=== PATIENT | male | born 1990 | race Two or more races ===

== ENCOUNTER 2016-10-17 16:12 | Inpatient (IN) | payer SELFPAY ==
--- NOTE | 2016-10-17 16:15 | ED Physician Chart ---
Chief Complaint/HPI - Patient Information Allergies:: Allergies Allergy/AdvReac Type Severity Reaction Status Date / Time No Known Allergies Allergy Verified 10/17/16 16:24 Vitals:: Vital Signs - 8 hr 10/17/16 16:24 Temp 100.0 F HR 115 RR 26 BP 131/89 O2 Sat % 99 <Tarun Lama - Last Filed: 10/17/16 20:43> - Patient Information Date Seen:: 10/17/16 Time Seen:: 16:15 Chief Complaint:: ANXIETY History of Present Illness:: PT SUSPICIOUS OF HAVING CONSUMED DOCTORED DRINK ONE WEEK AGO. SINCE THEN HAS BEEN ANXIOUS AND DEPRESSED. 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 HAD FEVER AND CHILLS A WEEK AGO. HAD ABD PAIN , NAUSEA AND EPISODE OF DIARRHEA YESTERDAY. NO ABD PAIN AT THIS TIME.. NO APPETITE OVER THIS PAST WEEK. NO CHEST PAIN, COUGH, HEMOPTYSIS, OR RESP DISTRESS. NO DYSURIA, HEMATURIA OR URINARY FREQUENCY. <Danny Weber - Last Filed: 10/18/16 14:01> Family Medical History - Family Member Mother History Unknown: Yes Ethnicity: Living Status: Still Living Hx Family Cancer: No Hx Family Coronary Artery Disease: No Hx Family Congestive Heart Failure: No Hx Family Hypertension: No Hx Family Stroke: No Hx Family Diabetes: No Hx Family Seizures: No Hx Family Dementia: No Hx Family AIDS: No Hx Family HIV: No Hx Family COPD: No Hx Family Hepatitis: No Hx Family Psychiatric Problems: No Hx Family Tuberculosis: No <Danny Weber - Last Filed: 10/18/16 14:01> Physical Exam - Physical Examination General/Constitutional: Awake, Well-developed, well-nourished, Alert, Ambulatory Head: Atraumatic Eyes: Lids, conjuctiva normal, PERRL, EOMI Skin: Nl inspection, No rash, No skin lesions, No ecchymosis, Well hydrated, No lymphadenopathy ENMT: External ears, nose nl, TM canals nl, Nasal exam nl, Lips, teeth, gums nl , Oropharynx nl, Tonsils nl Other ENMT comments:: Normal oral mucosa. Neck: Nontender, Full ROM w/o pain, No JVD, No nuchal rigidity, No mass, No stridor Respiratory: Nl effort/Exclusion, Clear to Auscultation, No Wheeze/Rhonchi/Rales Cardio Vascular: No murmur, gallop, rubs, NL S1 S2 ( Moderate tachycardia in the 120 range.) GI: No tenderness/rebounding/guarding, No organomegaly, No hernia, Normal BS's, Nondistended, No mass/bruits, No McBurney tenderness Other GI comments:: Rectal examination deferred at my discretion. : No CVA tenderness, NL external genitalia Extremities: No tenderness or effusion, Full ROM, normal strength in all extremities, No edema Neuro/Psych: Alert/oriented, Normal sensory exam, Normal motor strength, Judgement/insight normal, Mood normal, Normal gait, No focal deficits Other Neuro/Psych comments:: Hyperreflexia in all four extremities. No clonus. Misc: Normal back, No paraspinal tenderness <Danny Weber - Last Filed: 10/18/16 14:01> Labs/Radiology/EKG Results - Lab Results Results: Laboratory Tests 10/17/16 10/17/16 10/17/16 16:23 16:23 16:40 WBC 14.3 H RBC 5.88 H Hgb 17.8 H Hct 52.6 H MCV 89.5 MCH 30.4 H MCHC Differential 33.9 RDW 12.7 Plt Count 238 MPV 7.9 Neutrophils (Manual) 85 H Lymphocytes 9 L Monocytes 5 Basophils 1 Platelet Estimate ADEQUATE Sodium Potassium Chloride Carbon Dioxide Anion Gap BUN Creatinine Est GFR ( Amer) Est GFR (Non-Af Amer) BUN/Creatinine Ratio Glucose Whole Bld Lactic Acid Calcium Total Bilirubin AST ALT Alkaline Phosphatase Total Protein Albumin Globulin Albumin/Globulin Ratio Urine Source CLEAN C Urine Color YELLOW Urine Clarity HAZY Urine pH 8.5 Ur Specific [place] 1.015 Urine Protein 30 H Urine Glucose (UA) NEGATIVE Urine Ketones NEGATIVE Urine Blood NEGATIVE Urine Nitrate NEGATIVE Urine Bilirubin NEGATIVE Urine Urobilinogen 0.2 Ur Leukocyte Esterase NEGATIVE Urine RBC NONE SEEN Urine WBC 0-2 Ur Epithelial Cells RARE Amorphous Sediment MANY PHOSPHATES Urine Bacteria FEW Urine Opiates Screen NEGATIVE Urine Methadone Screen NEGATIVE Ur Barbiturates Screen NEGATIVE Ur Tricyclics Screen NEGATIVE Ur Phencyclidine Scrn NEGATIVE Amphetamines Screen NEGATIVE U Methamphetamines Scrn NEGATIVE U Benzodiazepines Scrn NEGATIVE U Cocaine Metab Screen NEGATIVE U Cannabinoids Screen NEGATIVE 10/17/16 10/17/16 16:40 16:40 WBC RBC Hgb Hct MCV MCH MCHC Differential RDW Plt Count MPV Neutrophils (Manual) Lymphocytes Monocytes Basophils Platelet Estimate Sodium 132 L Potassium 3.7 Chloride 99 Carbon Dioxide 26.6 Anion Gap 10.1 BUN 18 Creatinine 1.1 Est GFR ( Amer) > 60.0 Est GFR (Non-Af Amer) > 60.0 BUN/Creatinine Ratio 16.4 Glucose 129 H Whole Bld Lactic Acid 1.80 Calcium 10.1 Total Bilirubin 1.6 H AST 19 ALT 19 Alkaline Phosphatase 44 Total Protein 7.8 Albumin 4.9 Globulin 2.9 Albumin/Globulin Ratio 1.7 Urine Source Urine Color Urine Clarity Urine pH Ur Specific [place] Urine Protein Urine Glucose (UA) Urine Ketones Urine Blood Urine Nitrate Urine Bilirubin Urine Urobilinogen Ur Leukocyte Esterase Urine RBC Urine WBC Ur Epithelial Cells Amorphous Sediment Urine Bacteria Urine Opiates Screen Urine Methadone Screen Ur Barbiturates Screen Ur Tricyclics Screen Ur Phencyclidine Scrn Amphetamines Screen U Methamphetamines Scrn U Benzodiazepines Scrn U Cocaine Metab Screen U Cannabinoids Screen - Radiology Results Results: Single AP VIEW Portable Chest X-ray was interpreted independently and contemporaneously by Neli Lama MD: No cardiomegaly Normal mediastinum No lung infiltrates No pneumothorax No soft tissue or bony abnormalities CT abdomen and pelvis with contrast per radiology No hydro- No free fluid Appendix normal Fecal impaction Mild ileus <Tarun Lama - Last Filed: 10/17/16 20:43> - EKG Interpretations EKG Time:: 16:34 Rate & Rhythm: SINUS TACHYCARDIA AT RATE OF 116. NO ECTOPY Harvey: RIGHT AXIS DEVIATION Intervals: NORMAL MN INTERVAL. NORMAL QRS DURATION. NORMAL QT INTERVAL Comments:: J-POINT ELEVATION LEADS V3 THROUGH V6. NO ISCHEMIC FINDINGS. <Danny Weber - Last Filed: 10/18/16 14:01> Assessment - Assessment General Assessment: CASE SUMMARY: This 26 year old male presents With a one-week history of anxiety. He is having financial stress and also stress with interpersonal relationships. Patient had a history of a fever and chills about the time of onset. He denies any headache, sore throat, chest pain, cough, difficulty breathing or urologic symptoms. He has had intermittent abdominal pain which is generalized and is not currently present. His physical examination was unremarkable except for hyperreflexia in all four extremities In tachycardia in the 110 to 150 range. Patient was hydrated with normal saline all in the emergency department with reduction in the tachycardia. He had a leukocytosis of 14,000. Laboratory studies were otherwise unremarkable. CT scan of the abdomen was negative for evidence of acute appendicitis. Urinalysis was negative for evidence of a UTI. physical examination and chest x-ray were negative for evidence of pneumonia. Patient was admitted because of persistent tachycardia and elevated white count. He was treated with 2 L of normal saline over the duration of the ER visit was subjective improvement in his symptoms. Laboratory studies were negative for any evidence of illicit drug use. Admitted in stable condition. MDM DDX TACHYCARDIA AND ELEVATED WBC COUNT: NOT Pneumonia based on history, exam and negative CX. NOT UTI Based on History and physical examination andthe urinalysis. NOT acute appendicitis based on normal appearance of the appendix on CT scan of the abdomen. <Danny Weber - Last Filed: 10/18/16 14:01> ED Septic Shock - . Is Septic Shock (SBP<90, OR Lactate>4 mmol\L) present?: No - <6hrs of presentation: Vital Signs: Vital Signs - 8 hr 10/17/16 16:24 Temp 100.0 F HR 115 RR 26 BP 131/89 O2 Sat % 99 <Tarun Lama - Last Filed: 10/17/16 20:43> Reassessment (Disposition) - Reassessment Reassessment:: Patient handed off to me at change of shift. Patient had arrived with tachycardia and elevated temperature, labs revealed elevated white blood count. CT shows fecal impaction. Concern for sepsis however there is unknown source at this time. Discussed case with the admitting physician. Patient admitted for further workup and treatment. Reassessment Condition:: Unchanged - Diagnosis Diagnosis:: Possible sepsis, unknown etiology Fecal impaction Tachycardia - Patient Disposition Discharge/Transfer:: Acute Care w/in [facility] Admitting Medical Physician:: Vic Nation Time:: 20:45 Condition at Disposition:: Stable <Tarun Lama - Last Filed: 10/17/16 20:43> ED Discharge Plan <Tarun Lama - Last Filed: 10/17/16 20:43> <Danny Weber - Last Filed: 10/18/16 14:01> - Patient Disposition Admit/Discharge/Transfer: Acute Care w/in [facility] hosp
[2016-10-17 16:44] LABS: URINE AMORPHOUS SEDIMENT MANY PHOSPHATES (NONE SEEN); URINE BACTERIA FEW /hpf (NONE SEEN); URINE BILIRUBIN NEGATIVE (NEGATIVE); URINE BLOOD NEGATIVE (NEGATIVE); URINE COLOR YELLOW; URINE EPITHELIAL CELLS RARE /lpf (FEW); URINE GLUCOSE (UA) NEGATIVE (NEGATIVE); URINE KETONE NEGATIVE (NEGATIVE); URINE PH 8.5; URINE PROTEIN 30 mg/dL (NEGATIVE); URINE RBC NONE SEEN /hpf (0-5); URINE UROBILINOGEN 0.2 E.U./dL (0.2 - 1.0); URINE WBC 0-2 /hpf (0-5)
[2016-10-17] MEDS ORDERED: Sodium Chloride 0.45% 1,000 ML IV ONE ×2 (16:47→16:48)
[2016-10-17 16:49] LABS: HEMATOCRIT 52.6 % (39.0-49.0); HEMOGLOBIN 17.8 gm/dL (13.2-17.3); MEAN CELL VOLUME 89.5 fl (80-99); MEAN CORPUSCULAR HEMOGLOBIN 30.4 pg (26.0-30.0); MEAN CORPUSCULAR HGB CONC 33.9 pg (28.0-36.0); MEAN PLATELET VOLUME 7.9 fl; PLATELET COUNT 238 Th/cmm (150-400); RED BLOOD COUNT 5.88 Mil/cmm (4.30-5.70); RED CELL DISTRIBUTION WIDTH 12.7 % (11.5-20.0)
[2016-10-17 16:51] LABS: WHITE BLOOD COUNT 14.3 Th/cmm (4.8-10.8)
[2016-10-17 16:53] LABS: AMPHETAMINE URINE NEGATIVE (NEGATIVE); BARBITURATES URINE NEGATIVE (NEGATIVE); METHADONE URINE NEGATIVE (NEGATIVE)
[2016-10-17 17:07] LABS: ALB/GLOB RATIO 1.7 (1.0-1.8); ALKALINE PHOSPHATASE 44 U/L (34-104); ANION GAP 10.1 (7.0-16.0); BILIRUBIN,TOTAL 1.6 mg/dL (0.3-1.0); BUN - UREA NITROGEN 18 mg/dL (7-25); BUN/CREATININE RATIO 16.4; CALCIUM SERUM 10.1 mg/dL (8.6-10.3); CARBON DIOXIDE 26.6 mEq/L (21.0-31.0); CHLORIDE 99 mEq/L (98-107); CREATININE - SERUM 1.1 mg/dL (0.7-1.3); GLUCOSE 129 mg/dL (70-105); POTASSIUM SERUM 3.7 mEq/L (3.5-5.1); SGOT 19 U/L (13-39); SGPT/ALT 19 U/L (7-52); SODIUM SERUM 132 mEq/L (136-145)
[2016-10-17 17:15] LABS: BASOPHIL 1 % (0-3); NEUTROPHILS 85 % (40-80); PLATELET ESTIMATE ADEQUATE (NORMAL); TOTAL CELLS COUNTED 100
[2016-10-17] MEDS ORDERED: Sodium Chloride 0.9% 1,000 ML IV SCH ×2 (17:15→21:00)
[2016-10-17] MEDS: Sodium Chloride 0.9% 1,000 ML IV SCH (17:38)
[2016-10-17] MEDS ORDERED: IOHEXOL 300MG/ML 100 ML VIAL ONE (19:11)
[2016-10-17 22:34] VITALS: BP 124/73
[2016-10-17] MEDS ORDERED: Piperacillin Sodium/Tazobact 3.375 gm Vial IV ONE ×2 (23:28)
[2016-10-18 05:59] LABS: % EOSINOPHILS 1.8 % (0.0-5.0); % LYMPHOCYTES 17.5 % (20.0-50.0); % MONOCYTES 6.9 % (2.0-10.0); % NEUTROPHILS 73.8 % (40.0-80.0); MEAN CELL VOLUME 90.5 fl (80-99); MEAN CORPUSCULAR HEMOGLOBIN 30.5 pg (26.0-30.0); MEAN CORPUSCULAR HGB CONC 33.8 pg (28.0-36.0); NEUTROPHILE ABSOLUTE 7.2 Th/cmm (1.8-8.0); PLATELET COUNT 208 Th/cmm (150-400); RED BLOOD COUNT 4.94 Mil/cmm (4.30-5.70); RED CELL DISTRIBUTION WIDTH 12.6 % (11.5-20.0)
[2016-10-18 06:05] LABS: ALB/GLOB RATIO 1.8 (1.0-1.8); ALKALINE PHOSPHATASE 34 U/L (34-104); ANION GAP 4.3 (7.0-16.0); BUN - UREA NITROGEN 12 mg/dL (7-25); CARBON DIOXIDE 27.4 mEq/L (21.0-31.0); CHLORIDE 106 mEq/L (98-107); GLUCOSE 91 mg/dL (70-105); POTASSIUM SERUM 3.7 mEq/L (3.5-5.1); SGOT 12 U/L (13-39); SGPT/ALT 12 U/L (7-52); SODIUM SERUM 134 mEq/L (136-145)
[2016-10-18 06:09] LABS: HEMATOCRIT 44.7 % (39.0-49.0); HEMOGLOBIN 15.1 gm/dL (13.2-17.3); WHITE BLOOD COUNT 9.8 Th/cmm (4.8-10.8)
--- NOTE | 2016-10-18 08:28 | Diagnostic Imaging Report ---
Exam: CT examination abdomen pelvis. HISTORY: Appendicitis. Total DLP equals 303 CTDI equals 6.3 Findings multiple contiguous thin section of the abdomen and pelvis obtained from lower thorax to the pubic symphysis with administration of intravenous contrast material oral contrast was not utilized. The study demonstrates normal aeration of the lung parenchyma the bases. The liver and spleen are intact. The adrenal glands are normal. The kidneys concentrate and excrete contrast material in normal fashion. The bowel gas nonspecific. The gallbladder is contracted. There is evidence for fecal impaction throughout the colon. The visualized appendix is intact there is no evidence of appendicitis. Distention small bowel loops with fluid in the lower abdominal and pelvic area suggestive of ileus. There is no evidence of the diverticular disease of diverticulitis. Bony structures demonstrate no evidence for lytic or blastic changes. IMPRESSION: 1. Large amount of fecal content suggestive of fecal impaction. 2. Normal appearance of appendix no evidence for appendicitis. 3. Mild ileus distention of small bowel loops is fluid in the lower abdomen and pelvic area clinical correlation is recommended
--- NOTE | 2016-10-18 08:29 | Diagnostic Imaging Report ---
Exam: Portable examination of chest upright HISTORY: Pneumonia. Findings: Portable upright examination of the chest at 1903 hours reviewed, the study demonstrates no active pulmonic infiltrates or effusions. Mediastinal structures midline the heart is no enlarged bony thorax is intact. IMPRESSION: No acute disease
[2016-10-18] MEDS ORDERED: Magnesium Citrate 1.75 GM/300 mL Bottle PO ONE (09:58)
--- NOTE | 2016-10-18 10:32 | Diagnostic Imaging Report ---
Examination: KUB HISTORY: Abdominal pain Findings: Portable supine examination the abdomen is 0800 hours reviewed the study demonstrates nonspecific bowel gas pattern. No abnormal masses or calcifications are noted. Bony structures intact. IMPRESSION: Normal examination of the abdomen
--- NOTE | 2016-10-18 14:42 | Consultation ---
Consult Note - Consult Note Service Date: 10/18/16 Consult Note: PHYSICIAN Consultation Note: Date of Admission: 10/17/16 Purpose of Consultation: Sepsis. Chief Complaint: Patient SONJA CALZADA was admitted to location Medical/Surgical Unit I with SEPSIS ,FECAL IMPACT,DEHYDRATION. History of Present Illness: 26 y male presented to the ER for anxiety episode associated with abdominal pain. He also complained for of diarrhea for at least one week. on initial eval;uation, his temperature was 100 degree F and WBC Count was 14, 000. CT scan of the abdomen revwealed fecal impaction. He denies any issue like this before. Zosyn was started and ID consult was called for antibotic management. Past Medical History: Nonsignificant. Allergies Allergy/AdvReac Type Severity Reaction Status Date / Time No Known Allergies Allergy Verified 10/17/16 16:24 Vital Signs Temp 98.1 F 10/18/16 04:00 Pulse 74 10/18/16 04:00 Resp 18 10/18/16 04:00 BP 120/72 10/18/16 04:00 Pulse Ox 100 10/18/16 04:00 Intake & Output 10/17/16 10/18/16 10/18/16 18:59 06:59 18:59 Intake Total 2510 Output Total 1100 Balance 1410 Weight (lbs) 59.466 kg Intake: Intake, IV Amount 2150 Piperacillin Sodium/ 100 Tazobact 3.375 gm In Sodium Chloride 0.9% 50 ml @ 100 mls/hr IV Q6HR [facility] Rx#:[id number] Piperacillin Sodium/ 50 Tazobact 4.5 gm In Sodium Chloride 0.9% 100 ml @ 100 mls/hr IV X1 [facility] Rx#: [id number] Sodium Chloride 0.9% 1, 1000 000 ml @ Wide Open IV . Q0M [facility] Rx#:[id number] Sodium Chloride 0.9% 1, 1000 000 ml @ Wide Open IV . Q0M [facility] Rx#:[id number] Oral 360 Output: Urine 1100 Laboratory Results - last 24 hr 10/18/16 10/18/16 05:08 05:08 WBC 9.8 D RBC 4.94 Hgb 15.1 D Hct 44.7 D MCV 90.5 MCH 30.5 H MCHC Differential 33.8 RDW 12.6 Plt Count 208 MPV 8.0 Neutrophils % 73.8 Lymphocytes % 17.5 L Monocytes % 6.9 Eosinophils % 1.8 Basophils % 0.0 Sodium 134 L Potassium 3.7 Chloride 106 Carbon Dioxide 27.4 Anion Gap 4.3 L BUN 12 Creatinine 1.0 Est GFR ( Amer) > 60.0 Est GFR (Non-Af Amer) > 60.0 BUN/Creatinine Ratio 12.0 Glucose 91 Calcium 9.0 Total Bilirubin 2.0 H AST 12 L ALT 12 Alkaline Phosphatase 34 Total Protein 6.1 Albumin 3.9 L Globulin 2.2 Albumin/Globulin Ratio 1.8 Current Medications Generic Name Dose Route Start Last Admin Trade Name Freq PRN Reason Stop Dose Admin Sodium Chloride 1,000 mls @ 0 mls/hr 10/17/16 17:15 10/17/16 17:38 Nacl 0.9% IV 12/16/16 17:14 999 mls/hr .Q0M [facility] Administration Wide Open Sodium Chloride 1,000 mls @ 0 mls/hr 10/17/16 17:15 Nacl 0.9% IV 12/16/16 17:14 .Q0M [facility] Wide Open Sodium Chloride 1,000 mls @ 50 mls/hr 10/17/16 21:00 10/17/16 22:15 Nacl 0.9% IV 12/16/16 20:59 50 mls/hr .Q20H [facility] Administration Piperacillin Sod/Tazobactam 50 mls @ 100 mls/hr 10/18/16 00:00 10/18/16 12:00 Sod 3.375 gm/ Sodium Chloride IV 12/17/16 00:00 100 mls/hr Q6HR [facility] Administration Miscellaneous 1 ea 10/17/16 21:00 Zosyn Iv Per Pharmacy 12/16/16 20:59 PRN PRN PROTOCOL Review of Systems: A 12 point ROS was reviewed with the pertinent positive and negatives noted in the HPI. Social History Smoking Status Current some day smoker Drug Use No Alcohol Use No Family Medical History Unknown. Physical Exam: General: WN WD. anxious. No Acute Distress HEENT: EOMI Bilaterally, PERRLA Bilaterally, Head is normocephalic, atraumatic on inspection. Cardio: +S1/S2 Auscultated, RRR, no murmurs/rubs/gallops noted Respiratory: Clear to Auscultate Bilaterally Abdominal: Soft, Nondistended, Nontender to palpation x 4 quadrants Extremities: No Edema noted in the lower extremities Neurological: Alert and Oriented x3, Cranial Nerves II-XII intact bilaterally, Gait Steady, No Focal Deficits noted. Assessment/Plan: 1. Leukocytosis with low grade fever, suspect sepsis. or reactive to fecal impaction. 2. Diarrhea, r/o gastoenteritis versus C diff. 3. Anxiety Recomendations: Will start flagyl po and check stool studies. If blood culture remains negative may dc antibiotics. Thank you, Dr Nation for involving me in takini care of Mr Dominguez. Signed, [facility] M.D. [id number]
[2016-10-18] MEDS: Sodium Chloride 0.9% 1,000 ML IV SCH (20:28)
[2016-10-19 05:56] LABS: % EOSINOPHILS 4.4 % (0.0-5.0); % LYMPHOCYTES 25.1 % (20.0-50.0); % MONOCYTES 7.5 % (2.0-10.0); HEMATOCRIT 44.5 % (39.0-49.0); HEMOGLOBIN 15.3 gm/dL (13.2-17.3); MEAN CELL VOLUME 88.8 fl (80-99); MEAN CORPUSCULAR HEMOGLOBIN 30.6 pg (26.0-30.0); MEAN CORPUSCULAR HGB CONC 34.5 pg (28.0-36.0); MEAN PLATELET VOLUME 7.8 fl; NEUTROPHILE ABSOLUTE 4.5 Th/cmm (1.8-8.0); PLATELET COUNT 198 Th/cmm (150-400); RED BLOOD COUNT 5.01 Mil/cmm (4.30-5.70); RED CELL DISTRIBUTION WIDTH 12.8 % (11.5-20.0)
[2016-10-19 05:58] LABS: WHITE BLOOD COUNT 7.1 Th/cmm (4.8-10.8)
[2016-10-19 08:01] LABS: ALB/GLOB RATIO 1.7 (1.0-1.8); ALKALINE PHOSPHATASE 32 U/L (34-104); ANION GAP 8.1 (7.0-16.0); BILIRUBIN,TOTAL 1.2 mg/dL (0.3-1.0); BUN - UREA NITROGEN 12 mg/dL (7-25); CALCIUM SERUM 9.2 mg/dL (8.6-10.3); CARBON DIOXIDE 26.7 mEq/L (21.0-31.0); CHLORIDE 106 mEq/L (98-107); CREATININE - SERUM 1.2 mg/dL (0.7-1.3); GLUCOSE 92 mg/dL (70-105); LIPASE 19 U/L (11-82); POTASSIUM SERUM 3.8 mEq/L (3.5-5.1); SGOT 11 U/L (13-39); SGPT/ALT 10 U/L (7-52); SODIUM SERUM 137 mEq/L (136-145)
--- NOTE | 2016-10-19 09:41 | Diagnostic Imaging Report ---
Exam: KUB HISTORY: Constipation. Findings: Single supine examination of the abdomen was reviewed. The study demonstrates nonspecific bowel gas pattern. No abnormal masses or calcifications are noted. Bony structures are intact. IMPRESSION: Nonspecific bowel gas pattern, no evidence of fecal impaction.
--- NOTE | 2016-10-19 13:16 | Infectious Disease Prog Note ---
Infectious Disease Subjective - Review of Systems Service Date: 10/19/16 Subjective: There is no new change, there is no fever. Infectious Disease Objective - Results Result Diagrams: 10/19/16 05:41 10/19/16 05:41 Recent Labs: Laboratory Last Values WBC 7.1 Th/cmm (4.8-10.8) D 10/19/16 05:41 RBC 5.01 Mil/cmm (4.30-5.70) 10/19/16 05:41 Hgb 15.3 gm/dL (13.2-17.3) 10/19/16 05:41 Hct 44.5 % (39.0-49.0) 10/19/16 05:41 MCV 88.8 fl (80-99) 10/19/16 05:41 MCH 30.6 pg (26.0-30.0) H 10/19/16 05:41 MCHC Differential 34.5 pg (28.0-36.0) 10/19/16 05:41 RDW 12.8 % (11.5-20.0) 10/19/16 05:41 Plt Count 198 Th/cmm (150-400) 10/19/16 05:41 MPV 7.8 fl 10/19/16 05:41 Neutrophils % 63.0 % (40.0-80.0) 10/19/16 05:41 Lymphocytes % 25.1 % (20.0-50.0) 10/19/16 05:41 Monocytes % 7.5 % (2.0-10.0) 10/19/16 05:41 Eosinophils % 4.4 % (0.0-5.0) 10/19/16 05:41 Basophils % 0.0 % (0.0-2.0) 10/19/16 05:41 Neutrophils (Manual) 85 % (40-80) H 10/17/16 16:40 Lymphocytes 9 % (20-50) L 10/17/16 16:40 Monocytes 5 % (2-10) 10/17/16 16:40 Basophils 1 % (0-3) 10/17/16 16:40 Platelet Estimate ADEQUATE (NORMAL) 10/17/16 16:40 Sodium 137 mEq/L (136-145) 10/19/16 05:41 Potassium 3.8 mEq/L (3.5-5.1) 10/19/16 05:41 Chloride 106 mEq/L (98-107) 10/19/16 05:41 Carbon Dioxide 26.7 mEq/L (21.0-31.0) 10/19/16 05:41 Anion Gap 8.1 (7.0-16.0) 10/19/16 05:41 BUN 12 mg/dL (7-25) 10/19/16 05:41 Creatinine 1.2 mg/dL (0.7-1.3) 10/19/16 05:41 Est GFR ( Amer) > 60.0 ml/min (>90) 10/19/16 05:41 Est GFR (Non-Af Amer) > 60.0 ml/min 10/19/16 05:41 BUN/Creatinine Ratio 10.0 10/19/16 05:41 Glucose 92 mg/dL (70-105) 10/19/16 05:41 Whole Bld Lactic Acid 1.80 mmol/L (0.60-1.99) 10/17/16 16:40 Calcium 9.2 mg/dL (8.6-10.3) 10/19/16 05:41 Total Bilirubin 1.2 mg/dL (0.3-1.0) H 10/19/16 05:41 AST 11 U/L (13-39) L 10/19/16 05:41 ALT 10 U/L (7-52) 10/19/16 05:41 Alkaline Phosphatase 32 U/L (34-104) L 10/19/16 05:41 Total Protein 6.3 gm/dL (6.0-8.3) 10/19/16 05:41 Albumin 4.0 gm/dL (4.2-5.5) L 10/19/16 05:41 Globulin 2.3 gm/dL 10/19/16 05:41 Albumin/Globulin Ratio 1.7 (1.0-1.8) 10/19/16 05:41 Lipase 19 U/L (11-82) 10/19/16 05:41 Urine Source CLEAN C 10/17/16 16:23 Urine Color YELLOW 10/17/16 16:23 Urine Clarity HAZY (CLEAR) 10/17/16 16:23 Urine pH 8.5 10/17/16 16:23 Ur Specific [place] 1.015 (1.005-1.030) 10/17/16 16:23 Urine Protein 30 mg/dL (NEGATIVE) H 10/17/16 16:23 Urine Glucose (UA) NEGATIVE mg/dL (NEGATIVE) 10/17/16 16:23 Urine Ketones NEGATIVE mg/dL (NEGATIVE) 10/17/16 16:23 Urine Blood NEGATIVE (NEGATIVE) 10/17/16 16:23 Urine Nitrate NEGATIVE (NEGATIVE) 10/17/16 16:23 Urine Bilirubin NEGATIVE (NEGATIVE) 10/17/16 16:23 Urine Urobilinogen 0.2 E.U./dL (0.2 - 1.0) 10/17/16 16:23 Ur Leukocyte Esterase NEGATIVE (NEGATIVE) 10/17/16 16:23 Urine RBC NONE SEEN /hpf (0-5) 10/17/16 16:23 Urine WBC 0-2 /hpf (0-5) 10/17/16 16:23 Ur Epithelial Cells RARE /lpf (FEW) 10/17/16 16:23 Amorphous Sediment MANY PHOSPHATES (NONE SEEN) 10/17/16 16:23 Urine Bacteria FEW /hpf (NONE SEEN) 10/17/16 16:23 Stool Leukocyte NO WBC SEEN 10/18/16 14:50 Urine Opiates Screen NEGATIVE (NEGATIVE) 10/17/16 16:23 Urine Methadone Screen NEGATIVE (NEGATIVE) 10/17/16 16:23 Ur Barbiturates Screen NEGATIVE (NEGATIVE) 10/17/16 16:23 Ur Tricyclics Screen NEGATIVE (NEGATIVE) 10/17/16 16:23 Ur Phencyclidine Scrn NEGATIVE (NEGATIVE) 10/17/16 16:23 Amphetamines Screen NEGATIVE (NEGATIVE) 10/17/16 16:23 U Methamphetamines Scrn NEGATIVE (NEGATIVE) 10/17/16 16:23 U Benzodiazepines Scrn NEGATIVE (NEGATIVE) 10/17/16 16:23 U Cocaine Metab Screen NEGATIVE (NEGATIVE) 10/17/16 16:23 U Cannabinoids Screen NEGATIVE (NEGATIVE) 10/17/16 16:23 - Physical Exam Vitals and I&O: Vital Signs Temp 98 F 10/19/16 10:12 Pulse 73 10/19/16 10:12 Resp 20 10/19/16 10:12 BP 123/70 10/19/16 10:12 Pulse Ox 99 10/19/16 10:12 Intake & Output 10/18/16 10/19/16 10/19/16 18:59 06:59 18:59 Intake Total 900 290 600 Output Total 905 3 Balance -5 287 600 Weight (lbs) 59.421 kg 60.328 kg 60.328 kg Intake: Intake, IV Amount 100 50 Piperacillin Sodium/ 100 50 Tazobact 3.375 gm In Sodium Chloride 0.9% 50 ml @ 100 mls/hr IV Q6HR [facility] Rx#:[id number] Oral 800 240 600 Output: Urine 900 Stool 5 3 Other: # Voids 5 4 Stool Characteristics Liquid Liquid Liquid Active Medications: Current Medications Acetaminophen (Tylenol) 650 mg PO Q6H PRN PRN Reason: Headache Stop: 12/17/16 22:48 Last Admin: 10/18/16 23:25 Dose: 650 mg Sodium Chloride (Nacl 0.9%) 1,000 mls @ 50 mls/hr IV .Q20H [facility] Stop: 12/16/16 20:59 Last Admin: 10/17/16 22:15 Dose: 50 mls/hr Piperacillin Sod/Tazobactam (Sod 3.375 gm/ Sodium Chloride) 50 mls @ 100 mls/ hr IV Q6HR [facility] Stop: 12/18/16 11:59 Miscellaneous (Zosyn Iv Per Pharmacy) 1 ea [facility] PRN PRN PRN Reason: PROTOCOL Stop: 12/16/16 20:59 General: no acute distress, well developed, well nourished HEENT: atraumatic, normocephalic, moist mucous membrane Neck: supple, no thyromegaly Cardiovascular: S1S2, regular Lungs: clear to auscultation bilaterally, clear to percussion Abdomen: soft, bowel sounds, no tender, no distended Extremities: no cyanosis, no clubbing, no edema Neurological: awake, alert, oriented Skin: intact Infectious Disease Assmt/Plan - Assessment Assessment: 1. Leukocytosis with low grade fever, suspect sepsis. or reactive to fecal impaction. 2. Diarrhea, r/o gastoenteritis versus C diff. 3. Anxiety Recomendations: Continue flagyl po and check stool studies. narrow down antibiotic zosyn to rocephin. If blood culture remains negative may dc antibiotics.
--- NOTE | 2016-10-24 07:13 | Discharge Summary ---
General Discharge Summary - Discharge Summary Date of Admission: 10/17/16 Admitting Diagnosis: abdominal pain, fever and chills Patient Problems: All Active Problems Abdominal pain (Acute) R10.9 Anxiety (Acute) F41.9 Depression (Acute) F32.9 Hyponatremia (Acute) E87.1 Ileus (Acute) K56.7 Prerenal azotemia (Acute) R79.89 Sepsis (Acute) Discharge Date: 10/19/16 Discharge Diagnosis: abd pain, ileus, dehydration, sepsis, hypoNa+, Anxiety/ depression Laboratory Findings: Laboratory Tests 10/18/16 10/18/16 10/18/16 05:08 05:08 14:50 WBC 9.8 D RBC 4.94 Hgb 15.1 D Hct 44.7 D MCV 90.5 MCH 30.5 H MCHC Differential 33.8 RDW 12.6 Plt Count 208 MPV 8.0 Neutrophils % 73.8 Lymphocytes % 17.5 L Monocytes % 6.9 Eosinophils % 1.8 Basophils % 0.0 Sodium 134 L Potassium 3.7 Chloride 106 Carbon Dioxide 27.4 Anion Gap 4.3 L BUN 12 Creatinine 1.0 Est GFR ( Amer) > 60.0 Est GFR (Non-Af Amer) > 60.0 BUN/Creatinine Ratio 12.0 Glucose 91 Calcium 9.0 Total Bilirubin 2.0 H AST 12 L ALT 12 Alkaline Phosphatase 34 Total Protein 6.1 Albumin 3.9 L Globulin 2.2 Albumin/Globulin Ratio 1.8 Lipase Stool Leukocyte NO WBC SEEN 10/19/16 10/19/16 05:41 05:41 WBC 7.1 D RBC 5.01 Hgb 15.3 Hct 44.5 MCV 88.8 MCH 30.6 H MCHC Differential 34.5 RDW 12.8 Plt Count 198 MPV 7.8 Neutrophils % 63.0 Lymphocytes % 25.1 Monocytes % 7.5 Eosinophils % 4.4 Basophils % 0.0 Sodium 137 Potassium 3.8 Chloride 106 Carbon Dioxide 26.7 Anion Gap 8.1 BUN 12 Creatinine 1.2 Est GFR ( Amer) > 60.0 Est GFR (Non-Af Amer) > 60.0 BUN/Creatinine Ratio 10.0 Glucose 92 Calcium 9.2 Total Bilirubin 1.2 H AST 11 L ALT 10 Alkaline Phosphatase 32 L Total Protein 6.3 Albumin 4.0 L Globulin 2.3 Albumin/Globulin Ratio 1.7 Lipase 19 Stool Leukocyte Hospital Course: CC: Abdominal Pain, fever and chills Brief HPI : 26 y/o male who presents to [facility] ER for abdominal pain, constipation for the past few days. Patient had an episode of nausea and diarrhea prior to admission. He has had a decrease in his appetite. He denies chest pain, coughing, or urinary frequency or urgency. A CT scan of his stomach revealed a mild ileas and fecal impaction. Patient was subsequently admitted for further evaluation and treatment. Treatment: Patient underwent KUB which revealed resolution of his ileus on October 19. His electrolyte imbalance was corrected after given adequate IV fluid hydration. Patient was also seen by Infectious disease for possible sepsis. Please see dictated report. Patient was given Zosyn initially in the ER which was continued when patient was transferred to med/surg. Patient improved during his hospital stay and was subsequently discharge in stable condition. He was to follow up with his regular physician in 2-3 days. Condition at Discharge: Stable Disposition: PT DISCHARGED HOME Activity: As Tolerated Discharge Diet: Regular Consults and Follow-Up: Vic Nation [Primary Care Provider] - Instructions: High-Fiber Diet, Fecal Impaction
== END 2016-10-19 14:10 | disposition home or self-care (01) | DRG 872 ==
LOC: ER 16:12 → MSI 21:00
PROVIDERS: ADMIT Family Medicine; ATTEND Family Medicine
DX: A41.9 Sepsis, unspecified organism (principal); E87.1 Hypo-osmolality and hyponatremia; K56.7 Ileus, unspecified; K56.41 Fecal impaction; E86.0 Dehydration; F41.9 Anxiety disorder, unspecified; F32.9 Major depressive disorder, single episode, unspecified; F17.210 Nicotine dependence, cigarettes, uncomplicated; R19.7 Diarrhea, unspecified
CPT/HCPCS: 36415-UA; 71010-TC; 74000-TC; 80053-TC; 80307; 81001-TC; 83605; 83690-TC; 85007-TC; 85025-TC; 85027-TC; 87046-90; 87086-90; 87209-90; 87230-TC; 89055-TC; 93005; J0696; J2543; J7030; Q9967; Z7610